=== PATIENT | male | born 1965 | race Caucasian/White ===

== ENCOUNTER 2022-12-17 10:18 | Emergency (ER) | payer MEDICAID ==
[~2022-12-17] VITALS: Ht 170.2 cm; Wt 80.4 kg
[2022-12-17 11:39] VITALS: BP 111/79
[2022-12-17] MEDS ORDERED: TETANUS-DIPTH-ACEL PERTUSSIS 0.5ML SYR Tdap IM ONE (13:00)
== END 2022-12-17 13:27 | disposition home or self-care (01) ==
LOC: ER 10:18
DX: S61.210A Laceration without foreign body of right index finger without damage to nail, initial encounter (principal); X58.XXXA Exposure to other specified factors, initial encounter; Y93.89 Activity, other specified; Y92.89 Other specified places as the place of occurrence of the external cause; Y99.8 Other external cause status
CPT/HCPCS: 12002; 90471; 90715